=== PATIENT | female | born 1935 | race Caucasian/White ===

== ENCOUNTER → 2016-05-23 | Outpatient (CLI) | payer OTHER, MEDICARE | LOC: BMCIMAGING 11:14 | PROVIDERS: ATTEND Internal Medicine | DX: R09.89 Other specified symptoms and signs involving the circulatory and respiratory systems (principal) ==

== ENCOUNTER → 2016-09-10 | Outpatient (CLI) | payer OTHER, MEDICARE | LOC: CIMAGING 09:48 | PROVIDERS: ATTEND Internal Medicine | DX: R06.02 Shortness of breath (principal); R00.0 Tachycardia, unspecified | CPT/HCPCS: 71020-PO ==

== ENCOUNTER 2017-02-17 08:55 | Day surgery (SDC) | payer OTHER, MEDICARE ==
--- NOTE | 2017-02-17 10:08 | PDANEPAE ---
ANE History of Present Illness headaches ANE Past Medical History - Cardiovascular History Hx Hypertension: No Hx Arrhythmias: No Hx Chest Pain: No Hx Coronary Artery / Peripheral Vascular Disease: Yes Hx CHF / Valvular Disease: No Hx Palpitations: No Cardiovascular History Comment: angioplasty and stent placement 2006 - Pulmonary History Hx COPD: No Hx Asthma/Reactive Airway Disease: No Hx Recent Upper Respiratory Infection: No Hx Oxygen in Use at Home: Yes Hx Sleep Apnea: No - Neurologic History Hx Cerebrovascular Accident: No Hx Seizures: No Hx Dementia: Yes - Endocrine History Hx Diabetes: No Hypothyroid: Yes Hyperthyroid: No - GI History GERD: moderate Hx Gastrointestinal Disorders: Yes ANE Review of Systems Review of Systems: - Exercise capacity Exercise capacity: limited by disability ANE Patient History - Allergies Allergies/Adverse Reactions: acetaminophen [From Endocet] Allergy (Intermediate, Verified 10/03/09 08:38) aspirin [Aspirin] Allergy (Intermediate, Verified 10/03/09 08:39) oxycodone HCl [From Endocet] Allergy (Intermediate, Verified 10/03/09 08:38) Penicillins Allergy (Intermediate, Verified 10/03/09 08:39) clindamycin Allergy (Verified 02/17/17 10:05) codeine Allergy (Verified 02/17/17 10:10) hydrocodone Allergy (Verified 02/17/17 10:09) hyoscyamine Allergy (Verified 02/17/17 10:06) methenamine Allergy (Verified 02/17/17 10:10) tramadol Allergy (Verified 02/17/17 10:09) - Home Medications Home Medications: ACIDOPHILUS LACTOBACILLUS 10/03/09 [Last Taken 02/16/17] ARICEPT 10/03/09 [Last Taken 02/16/17] Aleve Arthritis 10/03/09 [Last Taken 02/16/17] Amitriptyline 25 mg 10/03/09 [Last Taken 10/03/09 07:00] Citacal 10/03/09 [Last Taken 10/03/09 07:00] ELMIRON 10/03/09 [Last Taken 10/03/09 08:00] Effexor 10/03/09 [Last Taken 02/16/17] Plavix 10/03/09 [Last Taken 02/16/17] Prosed-Ds 10/03/09 [Last Taken 10/03/09 07:00] Simvastatin 10/03/09 [Last Taken 02/16/17] Sulfamethoxazole-Tmp Ds Tablet 10/03/09 [Last Taken 10/03/09 07:00] Azo PRN PRN 02/17/17 [Last Taken 02/16/17] B12/Levomefolate Calcium/B-6 2,500 mcg DAILY 02/17/17 [Last Taken 02/16/17] Cosopt Eye Drops 02/17/17 [Last Taken 02/17/17] D3 + K2 Dots 1,000 Units Tab 02/17/17 [Last Taken 02/16/17] DIAZEPAM 2 mg 02/17/17 [Last Taken 02/16/17] Durezol 02/17/17 [Last Taken 02/17/17] Exemestane 25 mg 02/17/17 [Last Taken 02/16/17] Fish Oil 1,200 mg Fish Oil 02/17/17 [Last Taken 02/16/17] Gabapentin 100 mg 02/17/17 [Last Taken 02/16/17] Imodium 2 mg (*) 02/17/17 [Last Taken Unknown] LEVOTHYROXINE SODIUM 25 02/17/17 [Last Taken 02/16/17] Lomotil Tab (*) 02/17/17 [Last Taken Unknown] Lotemax0.5% Gel 02/17/17 [Last Taken 02/17/17] Lumigan 0.01% (*) 02/17/17 [Last Taken 02/16/17] Nitrofurantoin Macrocrystal 100 mg 02/17/17 [Last Taken 02/16/17] Ondansetron 4 mg 02/17/17 [Last Taken Unknown] Prednisone 20 mg 02/17/17 [Last Taken 02/16/17] ANE Physical Exam - Airway Neck exam: decreased ROM, short neck Mallampati Score: Class 3 Mouth exam: dentures - Pulmonary Pulmonary: no respiratory distress, no rales or rhonchi, clear to auscultation - Cardiovascular Cardiovascular: regular rate and rhythym, no murmur, rub, or gallop - ASA Status ASA Status: III ANE Anesthesia Plan Anesthesia Plan: general endotracheal anesthesia
[2017-02-17] MEDS ORDERED: BUPIVACAINE 0.5% 30 ML SDV ONE (10:14)
[2017-02-17 10:20] VITALS: PULSE 42
--- NOTE | 2017-02-17 10:24 | PDGENHP ---
History and Physical - Chief Complaint Headache - History of Present Illness Elevated ESR & CRP. Here for temporal artery biopsy to evaluate for temporal arteritis. C/O headache and confucianism pain. History Information - Allergies/Home Medication List Allergies/Adverse Reactions: acetaminophen [From Endocet] Allergy (Intermediate, Verified 10/03/09 08:38) aspirin [Aspirin] Allergy (Intermediate, Verified 10/03/09 08:39) oxycodone HCl [From Endocet] Allergy (Intermediate, Verified 10/03/09 08:38) Penicillins Allergy (Intermediate, Verified 10/03/09 08:39) clindamycin Allergy (Verified 02/17/17 10:05) codeine Allergy (Verified 02/17/17 10:10) hydrocodone Allergy (Verified 02/17/17 10:09) hyoscyamine Allergy (Verified 02/17/17 10:06) methenamine Allergy (Verified 02/17/17 10:10) tramadol Allergy (Verified 02/17/17 10:09) Home Medications: ACIDOPHILUS LACTOBACILLUS 10/03/09 [Last Taken 02/16/17] ARICEPT 10/03/09 [Last Taken 02/16/17] Aleve Arthritis 10/03/09 [Last Taken 02/16/17] Amitriptyline 25 mg 10/03/09 [Last Taken 10/03/09 07:00] Citacal 10/03/09 [Last Taken 10/03/09 07:00] ELMIRON 10/03/09 [Last Taken 10/03/09 08:00] Effexor 10/03/09 [Last Taken 02/16/17] Plavix 10/03/09 [Last Taken 02/16/17] Prosed-Ds 10/03/09 [Last Taken 10/03/09 07:00] Simvastatin 10/03/09 [Last Taken 02/16/17] Sulfamethoxazole-Tmp Ds Tablet 10/03/09 [Last Taken 10/03/09 07:00] Azo PRN PRN 02/17/17 [Last Taken 02/16/17] B12/Levomefolate Calcium/B-6 2,500 mcg DAILY 02/17/17 [Last Taken 02/16/17] Cosopt Eye Drops 02/17/17 [Last Taken 02/17/17] D3 + K2 Dots 1,000 Units Tab 02/17/17 [Last Taken 02/16/17] DIAZEPAM 2 mg 02/17/17 [Last Taken 02/16/17] Durezol 02/17/17 [Last Taken 02/17/17] Exemestane 25 mg 02/17/17 [Last Taken 02/16/17] Fish Oil 1,200 mg Fish Oil 02/17/17 [Last Taken 02/16/17] Gabapentin 100 mg 02/17/17 [Last Taken 02/16/17] Imodium 2 mg (*) 02/17/17 [Last Taken Unknown] LEVOTHYROXINE SODIUM 25 02/17/17 [Last Taken 02/16/17] Lomotil Tab (*) 02/17/17 [Last Taken Unknown] Lotemax0.5% Gel 02/17/17 [Last Taken 02/17/17] Lumigan 0.01% (*) 02/17/17 [Last Taken 02/16/17] Nitrofurantoin Macrocrystal 100 mg 02/17/17 [Last Taken 02/16/17] Ondansetron 4 mg 02/17/17 [Last Taken Unknown] Prednisone 20 mg 02/17/17 [Last Taken 02/16/17] I have personally reviewed and updated: family history, medical history, social history, surgical history Review of Systems Review of Systems: ROS: 2-9 pt reviewed & negative except for what was stated in HPI & below Constitutional: Reports: other (headache) EENMT: Reports: blurred vision Cardiac: Reports: no symptoms Respiratory: Reports: no symptoms Neurological: Reports: headache, other (Memory problems) Physical Exam Physical Exam: Temp Pulse Resp BP Pulse Ox 36.8 C 42 L 18 192/74 H 96 02/17/17 10:11 02/17/17 10:11 02/17/17 10:11 02/17/17 10:11 02/17/17 10:11 Constitutional: no apparent distress, appears nourished Eyes: No PERRL (R cataract) Ears, Nose, Mouth, Throat: moist mucous membranes, ears appear normal, other ( Skin warm and dry) Respiratory: no respiratory distress Skin: warm, normal color Neurologic: AAOx3 Assessment & Plan Assessment: Symptoms and findings concerning for temporal arteritis. Plan: To OR for RIGHT, possible LEFT temporal artery biopsy. The risks, benefits, and alternatives to the procedure was explained at length to the patient and her daughter. THey stated they understood and agreed with the plan.
[2017-02-17] MEDS ORDERED: BUPIVACAINE/EPI 0.5% 30 ML SDV ONE (10:25)
[2017-02-17] MEDS ORDERED: LR 1,000 ML IV ONE (10:29)
[2017-02-17] MEDS ORDERED: fentaNYL 100 MCG/2 ML INJ ONE ×2 (10:30→12:14)
[2017-02-17] MEDS ORDERED: PROPOFOL 200 MG/20 ML VIAL ONE (10:31)
[2017-02-17] MEDS ORDERED: LIDOCAINE 2% 5 ML SDV ONE (10:32)
[2017-02-17] MEDS ORDERED: DEXAMETHASONE 4 MG/ML VIAL ONE (10:34)
[2017-02-17] MEDS ORDERED: ROCURONIUM 50 MG/5 ML VIAL ONE (10:35)
[2017-02-17] MEDS ORDERED: PHENYLEPHRINE HCL 100 MCG/ML SYR ONE (10:40)
[2017-02-17] MEDS ORDERED: GLYCOPYRROLATE 0.2 MG/1 ML VIAL ONE ×2 (10:53)
[2017-02-17] MEDS ORDERED: LR 500 ML IV PRN (11:08)
[2017-02-17] MEDS ORDERED: ONDANSETRON 4 MG/2 ML VIAL IVP PRN (11:08)
[2017-02-17] MEDS ORDERED: NALOXONE HCL 0.4 MG/ML INJ IVP PRN (11:08)
[2017-02-17] MEDS ORDERED: SUGAMMADEX SODIUM 200 MG/2 ML VIAL IVP ONE (11:24)
[2017-02-17] MEDS ORDERED: BACITRACIN ZINC 14.2 GM OINTTUBE TP ONE (11:28)
[2017-02-17] MEDS ORDERED: KETOROLAC 30 MG/1 ML SDV ONE (11:36)
--- NOTE | 2017-02-17 11:59 | POSTOPPROG ---
Post Op Note Date of Operation: 02/17/17 Surgeon: Matias Platt Anesthesia: GET(General Endotracheal) Pre-op Diagnosis: Temporal arteritis Post-op Diagnosis: Temporal arteritis Indication: Temporal arteritis Procedure: R Temporal artery biosy Findings: R Temporal artery Inf/Abcess present in the surg proc area at time of surgery?: No Depth: Superfical (Skin SQ) EBL: Minimal Complications: none Specimen(s): R temporal artery
[2017-02-17] MEDS: fentaNYL 100 MCG/2 ML INJ IVP PRN ×2 (12:16→12:22)
[2017-02-17] MEDS ORDERED: ENALAPRILAT DIHYDRATE 1.25 MG/ML VIAL IVP PRN (12:48)
--- NOTE | 2017-02-17 12:48 | POSTANESTH ---
Post Anesthetic Evaluation Cardiovascular Status: Tx Hyper/Hypo-tension Respiratory Status: Normal, Stable Level of Consciousness/Mental Status: Can Participate in Eval Pain Control: Adequate, Prn Tx Ordered Nausea/Vomiting Control: Adequate, Prn Tx Ordered Complications Possibly Related to Anesthesia: None Noted
[2017-02-17] MEDS ORDERED: KETOROLAC 15 MG/1 ML SDV IVP ONE (12:54)
[2017-02-17] MEDS ORDERED: KETOROLAC 15 MG/1 ML SDV ONE (12:57)
[2017-02-17] MEDS ORDERED: ENALAPRILAT DIHYDRATE 1.25 MG/ML VIAL ONE (12:58)
[2017-02-17] MEDS ORDERED: ONDANSETRON 4 MG/2 ML VIAL ONE (13:25)
[2017-02-17 14:44] VITALS: O2SAT 100
[2017-02-17 15:39] VITALS: BP 171/63; RESP 23; TEMP 97.5
== END 2017-02-17 15:25 | disposition home or self-care (01) ==
LOC: FSGY 08:55
PROVIDERS: ATTEND Otolaryngology
PROC: 03BS3ZX Excision of Right Temporal Artery, Percutaneous Approach, Diagnostic (ICD-10-PCS; principal; 2017-02-17 10:15)
DX: R51 Headache (principal); I70.8 Atherosclerosis of other arteries; M54.2 Cervicalgia; G30.1 Alzheimer's disease with late onset; F02.80 Dementia in other diseases classified elsewhere, unspecified severity, without behavioral disturbance, psychotic disturbance, mood disturbance, and anxiety
CPT/HCPCS: J1100; J1885; J2370; J2405; J2704; J3010

== ENCOUNTER 2017-02-26 15:23 | Day surgery (SDC) | payer OTHER, MEDICARE ==
[2017-02-26] MEDS ORDERED: LR 1,000 ML IV ONE (16:24)
--- NOTE | 2017-02-26 16:50 | PDHPUP ---
History & Physical Update H&P update statement: This history and physical update is based on an assessment of the patient which was completed after admission or registration (within 24 hours), but prior to the surgery/procedure. H&P update: H&P reviewed & patient examined, no change in patient's condition since H&P completed
[2017-02-26] MEDS ORDERED: BUPIVACAINE 0.5% 30 ML SDV ONE (17:09)
--- NOTE | 2017-02-26 17:09 | PDANEPAE ---
ANE History of Present Illness 81 yo for temperal art bx ANE Past Medical History - Cardiovascular History Hx Hypertension: No Hx Arrhythmias: No Hx Chest Pain: No Hx Coronary Artery / Peripheral Vascular Disease: Yes Hx CHF / Valvular Disease: No Hx Palpitations: No Cardiovascular History Comment: angioplasty and stent placement 2006 - Pulmonary History Hx COPD: No Hx Asthma/Reactive Airway Disease: No Hx Recent Upper Respiratory Infection: No Hx Oxygen in Use at Home: Yes O2 in Use at Home (L/minute): 3 L AT NIGHT Hx Sleep Apnea: No - Neurologic History Hx Cerebrovascular Accident: No Hx Seizures: No Hx Dementia: Yes - Endocrine History Hx Diabetes: No - GI History Hx Gastrointestinal Disorders: Yes - Chronic Pain History Chronic Pain: Yes ANE Review of Systems Review of Systems: ANE Patient History - Allergies Allergies/Adverse Reactions: acetaminophen [From Endocet] Allergy (Intermediate, Verified 10/03/09 08:38) aspirin [Aspirin] Allergy (Intermediate, Verified 10/03/09 08:39) oxycodone HCl [From Endocet] Allergy (Intermediate, Verified 10/03/09 08:38) Penicillins Allergy (Intermediate, Verified 10/03/09 08:39) clindamycin Allergy (Verified 02/17/17 10:05) codeine Allergy (Verified 02/17/17 10:10) hydrocodone Allergy (Verified 02/17/17 10:09) hyoscyamine Allergy (Verified 02/17/17 10:06) methenamine Allergy (Verified 02/17/17 10:10) tramadol Allergy (Verified 02/17/17 10:09) - Home Medications Home Medications: ACIDOPHILUS LACTOBACILLUS 10/03/09 [Last Taken 02/16/17] ARICEPT 10/03/09 [Last Taken 1 Day Ago ~02/25/17] Aleve Arthritis 10/03/09 [Last Taken 1 Week Ago ~02/19/17] Effexor 10/03/09 [Last Taken 1 Day Ago ~02/25/17] Plavix 10/03/09 [Last Taken 02/25/17 22:00] Simvastatin 10/03/09 [Last Taken 1 Day Ago ~02/25/17] Azo PRN PRN 02/17/17 [Last Taken 02/16/17] B12/Levomefolate Calcium/B-6 2,500 mcg DAILY 02/17/17 [Last Taken 1 Day Ago ~03/02] Cosopt Eye Drops 02/17/17 [Last Taken 02/26/17] D3 + K2 Dots 1,000 Units Tab 02/17/17 [Last Taken 1 Day Ago ~02/25/17] DIAZEPAM 2 mg 02/17/17 [Last Taken 1 Day Ago ~02/25/17] Durezol 02/17/17 [Last Taken 1 Day Ago ~02/25/17] Exemestane 25 mg 02/17/17 [Last Taken 1 Day Ago ~02/25/17] Fish Oil 1,200 mg Fish Oil 02/17/17 [Last Taken 1 Day Ago ~02/25/17] Gabapentin 100 mg 02/17/17 [Last Taken 02/16/17] Imodium 2 mg (*) 02/17/17 [Last Taken Unknown] LEVOTHYROXINE SODIUM 25 02/17/17 [Last Taken 1 Day Ago ~02/25/17] Lomotil Tab (*) 02/17/17 [Last Taken 02/26/17] Lotemax0.5% Gel 02/17/17 [Last Taken 02/17/17] Lumigan 0.01% (*) 02/17/17 [Last Taken 02/26/17 07:00] Nitrofurantoin Macrocrystal 100 mg 02/17/17 [Last Taken 02/16/17] Prednisone 20 mg 02/17/17 [Last Taken 02/26/17] - NPO status NPO Status: no food or drink >8 hours NPO Since - Liquids (Date): 02/26/17 NPO Since - Liquids (Time): 01:00 NPO Since - Solids (Date): 02/26/17 NPO Since - Solids (Time): 01:00 - Anes Hx Anes Hx: post operative nausea - Smoking Hx Smoking Status: Never smoked ANE Labs/Vital Signs - Vital Signs Blood Pressure: 197/84 Heart Rate: 68 Respiratory Rate: 18 O2 Sat (%): 97 Height: 4 ft 10 in Weight: 63.503 kg ANE Physical Exam - Airway Neck exam: FROM Mallampati Score: Class 1 Mouth exam: dentures - Pulmonary Pulmonary: no respiratory distress - Cardiovascular Cardiovascular: regular rate and rhythym - ASA Status ASA Status: III ANE Anesthesia Plan Anesthesia Plan: general endotracheal anesthesia
[2017-02-26] MEDS ORDERED: PROPOFOL/EMULSION 500 MG/50 ML BOTTLE IV ONE (17:18)
[2017-02-26] MEDS ORDERED: fentaNYL 100 MCG/2 ML INJ ONE (17:18)
[2017-02-26] MEDS ORDERED: BUPIVACAINE/EPI 0.5% 30 ML SDV ONE (17:49)
[2017-02-26] MEDS ORDERED: DESFLURANE 240 ML BOTTLE IH ONE (18:00)
[2017-02-26] MEDS ORDERED: NALOXONE HCL 0.4 MG/ML INJ IVP PRN (18:03)
[2017-02-26] MEDS ORDERED: ONDANSETRON 4 MG/2 ML VIAL IVP PRN (18:03)
[2017-02-26] MEDS ORDERED: fentaNYL 100 MCG/2 ML INJ IVP PRN (18:03)
--- NOTE | 2017-02-26 18:28 | POSTOPPROG ---
Post Op Note Date of Operation: 02/26/17 Surgeon: Matias Platt Anesthesia: GET(General Endotracheal) Pre-op Diagnosis: Temporal arteritis Post-op Diagnosis: Temporal arteritis Indication: Temporal arteritis Procedure: LEFT Temporal artery biopsy Findings: Normal appearing temporal artery Inf/Abcess present in the surg proc area at time of surgery?: No Depth: Deep Incisional (Fascial) EBL: Minimal Complications: none Specimen(s): LEFT temporal artery
[2017-02-26 19:19] VITALS: BP 171/92; PULSE 65; RESP 18; TEMP 97.7
[2017-02-26 19:43] VITALS: O2SAT 94
--- NOTE | 2017-02-26 20:01 | POSTANESTH ---
Post Anesthetic Evaluation Cardiovascular Status: Normal, Stable Respiratory Status: Normal, Stable Level of Consciousness/Mental Status: Can Participate in Eval Pain Control: Adequate, Prn Tx Ordered Nausea/Vomiting Control: Adequate, Prn Tx Ordered
== END 2017-02-26 19:44 | disposition home or self-care (01) ==
LOC: F3E 15:23 → UNDOADMIN 15:23 → FSGY 15:23 → EDSTATUS 17:00 → FSGY 19:44
PROVIDERS: ATTEND Otolaryngology
PROC: 03BT0ZX Excision of Left Temporal Artery, Open Approach, Diagnostic (ICD-10-PCS; principal; 2017-02-26 17:00)
DX: M31.6 Other giant cell arteritis (principal); R51 Headache; Z95.5 Presence of coronary angioplasty implant and graft
CPT/HCPCS: J2704; J3010

== ENCOUNTER 2018-08-15 13:06 | Inpatient (IN) | payer OTHER, MEDICARE ==
--- NOTE | 2018-08-15 13:53 | EDPHY ---
H & P Time Seen by Provider: 08/15/18 13:32 HPI/ROS: CHIEF COMPLAINT: Shortness of breath, chest pressure HISTORY OF PRESENT ILLNESS: The patient is an 83-year-old female with a history of coronary artery disease and stents placed previously who presents emergency department with shortness of breath and chest heaviness. Patient states her shortness of breath started 2 weeks ago. She called her doctor yesterday because she requested oxygen at home. Her symptoms have continued to worsen so she was seen in urgent care and subsequently sent to the emergency department. The patient has not had a cough recently. She has not been ill. Patient describes chest heaviness starting today. This is mild. She has had no nausea vomiting. REVIEW OF SYSTEMS: 10 systems were reveiwed and are negative with the exception of the elements mentioned in the history of present illness. Past Medical/Surgical History: Includes glaucoma, arthritis, coronary artery disease, depression, back pain Past surgical history: Includes corneal surgery, neurostimulator, cardiac stents Social history: Patient does not smoke. Smoking Status: Never smoked Physical Exam: Vitals noted. Hypertensive GENERAL: Well-appearing, in no acute distress, alert. HEENT: Right I would not functional, normal pharynx, no signs of dehydration. NECK: Normal, supple. RESPIRATORY: Clear to auscultation bilaterally, no rales, rhonchi or wheezing. CVS: Regular rate and rhythm, no rubs, murmurs, or gallops. ABDOMEN: Soft, nontender, nondistended, no organomegaly. BACK: Normal to inspection, no CVA tenderness. SKIN: Normal color, no rash, warm, dry. No pallor. EXTREMITIES: No pedal edema, no calf tenderness, no Homans sign or cords, no joint swelling. NEURO/PSYCH: Alert and oriented, normal mood and affect, normal motor sensory exam. No obvious cranial nerve deficit. Constitutional: Initial Vital Signs Temperature (C) 36.6 C 08/15/18 13:13 Heart Rate 51 L 08/15/18 13:13 Respiratory Rate 16 08/15/18 13:13 Blood Pressure 170/61 H 08/15/18 13:13 O2 Sat (%) 93 08/15/18 13:13 O2 Delivery Mode Room Air Allergies/Adverse Reactions: acetaminophen [From Endocet] Allergy (Intermediate, Verified 08/15/18 13:17) aspirin [Aspirin] Allergy (Intermediate, Verified 08/15/18 13:17) oxycodone HCl [From Endocet] Allergy (Intermediate, Verified 08/15/18 13:17) Penicillins Allergy (Intermediate, Verified 08/15/18 13:17) clindamycin Allergy (Verified 08/15/18 13:17) codeine Allergy (Verified 08/15/18 13:17) hydrocodone Allergy (Verified 08/15/18 13:17) hyoscyamine Allergy (Verified 08/15/18 13:17) methenamine Allergy (Verified 08/15/18 13:17) tramadol Allergy (Verified 08/15/18 13:17) Home Medications: Medication Instructions Recorded ACIDOPHILUS LACTOBACILLUS 10/03/09 ARICEPT 10/03/09 Aleve Arthritis 10/03/09 Effexor 10/03/09 Plavix 10/03/09 Simvastatin 10/03/09 Azo PRN PRN 02/17/17 B12/Levomefolate Calcium/B-6 2,500 mcg DAILY 02/17/17 Cosopt Eye Drops 02/17/17 D3 + K2 Dots 1,000 Units Tab 02/17/17 DIAZEPAM 2 mg 02/17/17 Durezol 02/17/17 Exemestane 25 mg 02/17/17 Fish Oil 1,200 mg Fish Oil 02/17/17 Gabapentin 100 mg 02/17/17 Imodium 2 mg (*) 02/17/17 LEVOTHYROXINE SODIUM 25 02/17/17 Lomotil Tab (*) 02/17/17 Lotemax0.5% Gel 02/17/17 Lumigan 0.01% (*) 02/17/17 Nitrofurantoin Macrocrystal 100 mg 02/17/17 Prednisone 20 mg 02/17/17 Medical Decision Making ED Course/Re-evaluation: In the emergency department discussed possible etiologies with the patient and family. I answered all her questions. IV was placed. Laboratory studies were obtained. EKG and chest x-ray were ordered. Patient is allergic to aspirin. EKG: Sinus bradycardia 47. Left bundle branch block Troponin is negative. CBC is notable for low hematocrit. Chemistry panel is unremarkable. BNP is 4600. Ddimer is elevated. Due to the elevated D-dimer is CT angiogram was ordered. I discussed this plan with the patient. I discussed the case with Dr. Clinton. He will admit the patient. Differential Diagnosis: My differential includes but is not limited to ACS, acute LA, pneumonia, bronchitis, dissection, aneurysm, pulmonary embolus, anemia, electrolyte abnormality, sugar abnormality - Data Points Laboratory Results: Laboratory Results 08/15/18 13:39 08/15/18 13:39 08/15/18 08/15/18 08/15/18 13:45 13:39 13:39 WBC RBC Hgb Hct MCV MCH MCHC RDW Plt Count MPV Neut % (Auto) Lymph % (Auto) Creek % (Auto) Eos % (Auto) Baso % (Auto) Nucleat RBC Rel Count Absolute Neuts (auto) Absolute Lymphs (auto) Absolute Monos (auto) Absolute Eos (auto) Absolute Basos (auto) Absolute Nucleated RBC Immature Gran % Immature Gran # PT 14.0 SEC SEC (12.0-15.0) INR 1.12 (0.83-1.16) APTT 35.1 SEC SEC (23.0-38.0) D-Dimer 1.41 ug/mLFEU H ug/mLFEU (0.00-0.50) Sodium 140 mEq/L mEq/L (135-145) Potassium 4.7 mEq/L mEq/L (3.5-5.2) Chloride 107 mEq/L mEq/L (97-110) Carbon Dioxide 23 mEq/l mEq/l (22-31) Anion Gap 10 mEq/L mEq/L (6-14) BUN 26 mg/dL H mg/dL (7-23) Creatinine 0.9 mg/dL mg/dL (0.6-1.0) Estimated GFR 60 Glucose 80 mg/dL mg/dL (70-100) Calcium 9.3 mg/dL mg/dL (8.5-10.4) POC Troponin I 0.02 ng/mL ng/mL (0.00-0.08) NT-Pro-B Natriuret Pep 4690 pg/mL H pg/mL (0-450) 08/15/18 13:39 WBC 9.34 10^3/uL 10^3/uL (3.80-9.50) RBC 4.33 10^6/uL 10^6/uL (4.18-5.33) Hgb 11.0 g/dL L g/dL (12.6-16.3) Hct 37.8 % L % (38.0-47.0) MCV 87.3 fL fL (81.5-99.8) MCH 25.4 pg L pg (27.9-34.1) MCHC 29.1 g/dL L g/dL (32.4-36.7) RDW 14.3 % % (11.5-15.2) Plt Count 233 10^3/uL 10^3/uL (150-400) MPV 11.0 fL fL (8.7-11.7) Neut % (Auto) 59.8 % % (39.3-74.2) Lymph % (Auto) 26.6 % % (15.0-45.0) Creek % (Auto) 9.6 % % (4.5-13.0) Eos % (Auto) 3.2 % % (0.6-7.6) Baso % (Auto) 0.6 % % (0.3-1.7) Nucleat RBC Rel Count 0.0 % % (0.0-0.2) Absolute Neuts (auto) 5.58 10^3/uL 10^3/uL (1.70-6.50) Absolute Lymphs (auto) 2.48 10^3/uL 10^3/uL (1.00-3.00) Absolute Monos (auto) 0.90 10^3/uL H 10^3/uL (0.30-0.80) Absolute Eos (auto) 0.30 10^3/uL 10^3/uL (0.03-0.40) Absolute Basos (auto) 0.06 10^3/uL 10^3/uL (0.02-0.10) Absolute Nucleated RBC 0.00 10^3/uL 10^3/uL (0-0.01) Immature Gran % 0.2 % % (0.0-1.1) Immature Gran # 0.02 10^3/uL 10^3/uL (0.00-0.10) PT INR APTT D-Dimer Sodium Potassium Chloride Carbon Dioxide Anion Gap BUN Creatinine Estimated GFR Glucose Calcium POC Troponin I NT-Pro-B Natriuret Pep Point of Care Test Results: Chemistry 08/15/18 13:45 POC Troponin I 0.02 ng/mL ng/mL (0.00-0.08) Departure - Departure Disposition: [facility] Inpatient Acute Clinical Impression: Shortness of breath Chest pain Qualifiers: Chest pain type: unspecified Qualified Code(s): R07.9 - Chest pain, unspecified Condition: Fair
[2018-08-15 14:25] LABS: PLATELET COUNT 233 10^3/uL (150-400)
[2018-08-15 14:28] LABS: INR 1.12 (0.83-1.16)
[2018-08-15] MEDS ORDERED: IOPAMIDOL (ISOVUE 370) 100 ML BTL IV ONE (14:41)
--- NOTE | 2018-08-15 15:06 | CPEKG ---
Test Reason : OPEN Blood Pressure : / mmHG Vent. Rate : 047 BPM Atrial Rate : 047 BPM P-R Int : 175 ms QRS Dur : 136 ms QT Int : 550 ms P-R-T Axes : 045 -39 093 degrees QTc Int : 487 ms Sinus bradycardia Left bundle branch block Confirmed by Morelia Lainez ([id number]) on 08/15/2018 3:06:12 PM Referred By: Morelia Lainez Confirmed By:Morelia Lainez
[2018-08-15] MEDS ORDERED: ONDANSETRON 4 MG/2 ML VIAL IVP PRN (16:56)
[2018-08-15] MEDS ORDERED: oxyCODONE IR 5 MG TAB PO PRN (16:56)
[2018-08-15] MEDS ORDERED: LOPERAMIDE HCL 2 MG CAP PO PRN (16:58)
[2018-08-15] MEDS ORDERED: DIPHENOXYLATE/ATROPINE LOMOTIL 1 TAB PO PRN (16:58)
[2018-08-15] MEDS ORDERED: FUROSEMIDE 20 MG/2 ML VIAL IVP ONE (17:24)
--- NOTE | 2018-08-15 17:32 | PDGENHP ---
History and Physical - Chief Complaint shortness of breath - History of Present Illness 83yo F with history of CAD s/p PCI in 2006, mild pulmonary fibrosis, mild dementia who presents with 2 weeks of shortness of breath. This is associated with a feeling of chest heaviness, especially when she lies flat. She denies any exertional chest pain. Hasn't noticed any leg swelling. No recent fevers, chills, or cough. She is not on a diuretic. She had a coronary stent placed in [address] Adkins and was seen by Dr Navarro at the [facility]. She had a chemical stress test approximately 1 year ago that was reportedly normal per the patient's daughters. They do not know when her last angiogram was performed. In the ED, ECG showed sinus bradycardia with a LBBB (no old for comparison. Initial troponin negative. CXR reveals mild cardiomegaly and features consistent with pulmonary vascular congestion. A CTA of her chest was also done and negative for PE but consistent with congestive heart failure. She is being admitted for further evaluation and care. Case discussed with ED physician Morelia Lainez. I did review a TTE from 2017 which showed a low normal LVEF of 50-55% (down from 65% in 2013), mildly reduced RV function, trace MR, diastolic dysfunction, mild pulmonary hypertension. Lastly, she is having some burning with urination and urinary frequency, consistent with prior UTIs. History Information - Allergies/Home Medication List Allergies/Adverse Reactions: acetaminophen [From Endocet] Allergy (Intermediate, Verified 08/15/18 15:55) aspirin [Aspirin] Allergy (Intermediate, Verified 08/15/18 15:55) oxycodone HCl [From Endocet] Allergy (Intermediate, Verified 08/15/18 15:55) Penicillins Allergy (Intermediate, Verified 08/15/18 15:55) citalopram Allergy (Mild, Unverified 08/15/18 15:55) clindamycin Allergy (Verified 08/15/18 15:55) codeine Allergy (Verified 08/15/18 15:55) hydrocodone Allergy (Verified 08/15/18 15:55) hyoscyamine Allergy (Verified 08/15/18 15:55) methenamine Allergy (Verified 08/15/18 15:55) sodium phosphate Allergy (Unverified 08/15/18 15:56) tramadol Allergy (Verified 08/15/18 15:55) Home Medications: Clopidogrel Bisulfate [Plavix (*)] 75 mg PO DAILY 08/15/18 [Last Taken 08/15/18] Diphenoxylate HCl/Atrop Sulf [Lomotil Tab (*)] 1 tab PO DAILY PRN 08/15/18 [ Last Taken Unknown] Donepezil HCl [Aricept] 10 mg PO DAILY 08/15/18 [Last Taken 08/15/18] FLUoxetine [Prozac 20 MG (*)] 20 mg PO HS 08/15/18 [Last Taken 08/14/18] Gabapentin [Neurontin 100 MG (*)] 200 mg PO HS 08/15/18 [Last Taken 08/14/18] Latanoprost 0.005% [Xalatan 0.005% (*)] 1 drops LEFTEYE HS 08/15/18 [Last Taken 08/14/18] Levothyroxine [Synthroid 25 mcg (*)] 25 mcg PO DAILY06 08/15/18 [Last Taken 04/04] Loperamide HCl [Imodium 2 mg (*)] 2 - 4 mg PO PRN PRN MDD 16 mg 08/15/18 [Last Taken Unknown] Loteprednol 0.5% [Lotemax0.5% Gel] 1 drops RTEYE DAILY 08/15/18 [Last Taken 04/04] Omeprazole 40 mg PO DAILY PRN 08/15/18 [Last Taken 08/14/18] Ondansetron HCl 4 mg PO BID PRN 08/15/18 [Last Taken Unknown] Simvastatin 20 mg PO DAILY 08/15/18 [Last Taken 08/15/18] Timolol [Betimol] 1 drop EACHEYE DAILY 08/15/18 [Last Taken 08/15/18] prednisoLONE ACET 1% [Pred Forte 1% (*)] 1 drop RTEYE DAILY 08/15/18 [Last Taken 08/15/18] I have personally reviewed and updated: family history, medical history, social history, surgical history - Past Medical History Additional medical history: CAD s/p PCI in 2006, mild pulmonary fibrosis (not on supplemental oxygen), mild dementia, HLD, hypothyroidism, frequent UTIs, GERD , glaucoma - Surgical History Reports: no pertinent surgical hx - Family History Positive for: non-pertinent - Social History Smoking Status: Never smoked Alcohol Use: None Drug Use: None Additional social history: Lives with daughter. Additional daughter lives in [place]. Review of Systems Review of Systems: ROS: 10pt was reviewed & negative except for what was stated in HPI & below Physical Exam Physical Exam: Temp Pulse Resp BP Pulse Ox 36.4 C 50 L 18 166/59 H 91 L 08/15/18 16:51 08/15/18 16:51 08/15/18 16:51 08/15/18 16:51 08/15/18 16:51 Constitutional: no apparent distress, other (elderly) Eyes: PERRL, anicteric sclera, EOMI Ears, Nose, Mouth, Throat: moist mucous membranes, hearing normal, ears appear normal, no oral mucosal ulcers Cardiovascular: no murmur, rub, or gallop, JVD, bradycardia, No edema Respiratory: no respiratory distress, reduced air movement (bases), inspiratory crackles Gastrointestinal: normoactive bowel sounds, soft, non-tender abdomen, no palpable masses Genitourinary: no bladder fullness, no bladder tenderness Skin: warm, normal color, no rashes or abrasions, no fluctuance, no induration, No mottled Musculoskeletal: full muscle strength, no muscle tenderness, normal joint ROM, no joint effusions Neurologic: AAOx3 Psychiatric: interacting appropriately Lab Data & Imaging Review 08/15/18 13:39 08/15/18 13:39 WBC 9.34 10^3/uL (3.80-9.50) 08/15/18 13:39 RBC 4.33 10^6/uL (4.18-5.33) 08/15/18 13:39 Hgb 11.0 g/dL (12.6-16.3) L 08/15/18 13:39 Hct 37.8 % (38.0-47.0) L 08/15/18 13:39 MCV 87.3 fL (81.5-99.8) 08/15/18 13:39 MCH 25.4 pg (27.9-34.1) L 08/15/18 13:39 MCHC 29.1 g/dL (32.4-36.7) L 08/15/18 13:39 RDW 14.3 % (11.5-15.2) 08/15/18 13:39 Plt Count 233 10^3/uL (150-400) 08/15/18 13:39 MPV 11.0 fL (8.7-11.7) 08/15/18 13:39 Neut % (Auto) 59.8 % (39.3-74.2) 08/15/18 13:39 Lymph % (Auto) 26.6 % (15.0-45.0) 08/15/18 13:39 [place] % (Auto) 9.6 % (4.5-13.0) 08/15/18 13:39 Eos % (Auto) 3.2 % (0.6-7.6) 08/15/18 13:39 Baso % (Auto) 0.6 % (0.3-1.7) 08/15/18 13:39 Nucleat RBC Rel Count 0.0 % (0.0-0.2) 08/15/18 13:39 Absolute Neuts (auto) 5.58 10^3/uL (1.70-6.50) 08/15/18 13:39 Absolute Lymphs (auto) 2.48 10^3/uL (1.00-3.00) 08/15/18 13:39 Absolute Monos (auto) 0.90 10^3/uL (0.30-0.80) H 08/15/18 13:39 Absolute Eos (auto) 0.30 10^3/uL (0.03-0.40) 08/15/18 13:39 Absolute Basos (auto) 0.06 10^3/uL (0.02-0.10) 08/15/18 13:39 Absolute Nucleated RBC 0.00 10^3/uL (0-0.01) 08/15/18 13:39 Immature Gran % 0.2 % (0.0-1.1) 08/15/18 13:39 Immature Gran # 0.02 10^3/uL (0.00-0.10) 08/15/18 13:39 PT 14.0 SEC (12.0-15.0) 08/15/18 13:39 INR 1.12 (0.83-1.16) 08/15/18 13:39 APTT 35.1 SEC (23.0-38.0) 08/15/18 13:39 D-Dimer 1.41 ug/mLFEU (0.00-0.50) H 08/15/18 13:39 Sodium 140 mEq/L (135-145) 08/15/18 13:39 Potassium 4.7 mEq/L (3.5-5.2) 08/15/18 13:39 Chloride 107 mEq/L (97-110) 08/15/18 13:39 Carbon Dioxide 23 mEq/l (22-31) 08/15/18 13:39 Anion Gap 10 mEq/L (6-14) 08/15/18 13:39 BUN 26 mg/dL (7-23) H 08/15/18 13:39 Creatinine 0.9 mg/dL (0.6-1.0) 08/15/18 13:39 Estimated GFR 60 08/15/18 13:39 Glucose 80 mg/dL (70-100) 08/15/18 13:39 Calcium 9.3 mg/dL (8.5-10.4) 08/15/18 13:39 POC Troponin I 0.02 ng/mL (0.00-0.08) 08/15/18 13:45 NT-Pro-B Natriuret Pep 4690 pg/mL (0-450) H 08/15/18 13:39 Interpretation: CXR: per HPI EKG additional interpertation: ECG: per HPI, no e/o acute ischemia Assessment & Plan Assessment: 83yo F with history of CAD s/p PCI in 2005, previously low-normal LVEF, mild pulmonary fibrosis, mild dementia who presents with 2 weeks of shortness of breath. Plan: 1. Dyspnea: Clinical picture most consistent with decompensated congestive heart failure. No e/o PE. She is not hypoxemic. - TTE - Lasix 20mg IV BID (she is diuretic naive). Will place st as she is high fall risk and to obtain accurate I/Os. - Monitor renal fxn, electrolytes 2. Chest heaviness: This is strictly associated with her breathing issues and not exertional. I have less of a concern that this is an anginal equivalent. Initial trop negative. Reportedly had chemical stress test approximately 1 year ago without reversible ischemia per patient's daughters. - Trend trops - Obtaining records re: stress test. May need repeat stress testing pending these results. 3. LBBB: No old ecg for comparison. - Requesting records from [facility] 4. Sinus bradycardia: No AV block or pauses noted. Not on AV alexis blockers. Patient reports this is chronic issue. - Telemetry 5. CAD s/p PCI in 2005: Will continue her plavix (she has reported allergy to aspirin) and statin. 6. Dysuria: C/w previous UTI symptoms. Will treat as such. Does not have true allergy against PCN. - Checking UA/culture. Start keflex 500mg BID 7. Anemia: Normocytic. Somewhat chronic. Outpatient evaluation/monitoring. 8. Mild interstitial lung disease: Saw Lc Wooten in 2017. PFTs c/w restrictive pattern. She may need nocturnal O2. 9. GERD: Continue PPI 10. Dementia: Resume home aricept. VTE ppx: LMWH Code: DNR/DNI per discussion with patient and daughters. She understands the implications of this and has MOST form filled out with her PCP stating the same. Dispo: Admit under observation
--- NOTE | 2018-08-15 18:32 | ASMTLACE ---
DAVIS Acuity / Level of Answers: No Care: Did the patient have an inpatient admission? Comorbidities - select Answers: Chronic pulmonary disease all that apply Coronary Artery Disease Dementia Opioid dependence / Chronic pain Other Notes: Mild dementia, glaucoma, cor claudia l surgery, neurostiumlato r, stents, arthritis # of Emergency department Answers: 1-2 visits in the last 6 months Social determinants Answers: Mental health diagnosis (anxiety, depression, pers onality disorders, etc.) Score: 16 Date Signed: 08/15/2018 06:31 PM Electronically Signed By:Joyce Greer RN
[2018-08-15] MEDS ORDERED: FLUoxetine 20 MG CAP PO SCH (21:00)
[2018-08-15] MEDS ORDERED: GABAPENTIN 100 MG CAP PO SCH (21:00)
[2018-08-15] MEDS ORDERED: LATANOPROST 0.005% 2.5 ML OPHT DROPS LEFTEYE SCH (21:00)
[2018-08-15] MEDS: ONDANSETRON DISINTEGRATING 4 MG TAB PO PRN (21:14)
[2018-08-15] MEDS: CEPHALEXIN 500 MG CAP PO SCH (21:14)
[2018-08-15] MEDS ORDERED: MELATONIN 3 MG TAB PO PRN (22:23)
[2018-08-16 05:29] LABS: PLATELET COUNT 199 10^3/uL (150-400)
[2018-08-16] MEDS ORDERED: LEVOTHYROXINE 25 MCG TAB PO SCH (06:00)
[2018-08-16] MEDS ORDERED: CLOPIDOGREL BISULFATE 75 MG TAB PO SCH (09:00)
[2018-08-16] MEDS ORDERED: PANTOPRAZOLE SODIUM 40 MG TAB PO PRN (09:00)
[2018-08-16] MEDS ORDERED: TIMOLOL 0.5% 15 ML OPHT.BTL EACHEYE SCH (09:00)
[2018-08-16] MEDS ORDERED: prednisoLONE ACET 1% 5 ML OPHT.BTL RTEYE SCH (09:00)
[2018-08-16] MEDS ORDERED: ATORVASTATIN CALCIUM 10 MG TAB PO SCH (09:00)
[2018-08-16] MEDS ORDERED: LOTEPREDNOL 0.5% OPHT GEL 5GM RTEYE SCH ×2 (09:00→21:00)
[2018-08-16] MEDS ORDERED: DONEPEZIL HCL 5 MG TAB PO SCH (09:00)
[2018-08-16] MEDS ORDERED: ENOXAPARIN 40 MG/0.4 ML SYR SC SCH (09:00)
[2018-08-16] MEDS: ONDANSETRON DISINTEGRATING 4 MG TAB PO PRN (09:08)
[2018-08-16] MEDS: CEPHALEXIN 500 MG CAP PO SCH (09:14)
[2018-08-16] MEDS ORDERED: DORZOLAMIDE/TIMOLOL 10 ML OPHT.BTL LEFTEYE SCH (10:00)
[2018-08-16] MEDS ORDERED: DORZOLAMIDE/TIMOLOL 10 ML OPHT.BTL EACHEYE SCH (10:00)
--- NOTE | 2018-08-16 12:03 | PDMN ---
Medical Necessity Medical necessity: [facility] M190 Heart Failure, A-2 days: 83 yo w/ SOB and chest heaviness. Eval reveals s/sx most likely associated w/ CHF. Pt nikky in 50s on admit. Initially OBS for workup/tx but change to IP status - pt HR dropped to 40s and is persistent, pt + for UTI, Cx pending, IV diuresis started, urinary cath placed for strict I/O/pt high fall risk. PO antibx started. PT/ OT. Cont tele. Anticiapte>2Mn for ongoing monitoring and tx of the above. Change to IP status 08/15/18@2349 per MD order. Hx CAD s/p PCI in 2005, mild pulmonary fibrosis (not on supplemental oxygen), mild dementia, HLD, hypothyroidism, frequent UTIs, GERD, glaucoma
[2018-08-16 12:07] VITALS: BP 131/37
--- NOTE | 2018-08-16 12:27 | ECHO ---
[email or web address] [address] [address] Main: [phone] Echocardiography Examination Transthoracic Name: ABBY COTTON MR#: [id number] Study Date: 08/16/2018 Study Time: 09:49 AM Date of : 1935 Age: 83 year(s) Height: 147.3 cm (58 in.) Weight: 56.25 kg (124 lb.) BSA: 1.49 m2 Gender: Female Examination: Echo Contrast: Image Quality: Rhythm: Heart Rate: 44 bpm BP: 133 mmHg/32 mmHg Indication: Cardiac: dyspnea Procedure Staff Referring Physician: Yard Associate: Primitivo Bailey RDCS Reading Physician: Sin Harris MD Requesting Provider: Ordering Physician: Anthony Clinton Indication: Cardiac: dyspnea Measurements Chambers AV/MV Label Value Normal Value Label Value Normal Value LVOT Vmax 0.81 m/s (0.7m/s - 1.1m/s) AV PGmax 11 mmHg LVOTd 1.9 cm (1.8cm - 2cm) AV PGmean 5 mmHg LVOT VTI 21.7 cm (18cm - 22cm) AV Vmax 1.67 m/s LVDd, 2D 4.2 cm (3.9cm - 5.3cm) RENE (Vmax) 1.4 cm2 LVDs, 2D 2.5 cm (2.1cm - 4cm) RENE (VTI) 1.4 cm2 IVSd, 2D 0.8 cm (0.6cm - 1.1cm) MV E Vmax 1.61 m/s LVPWd, 2D 0.9 cm MV A Vmax 1.18 m/s LVEF, 2D 71 % (54% - 74%) MV E/A 1.36 LVOT PGmean 1 mmHg MV E/E' lateral 28.7 LVOT Vmean 0.53 m/s MV E/E' septal 41.3 (0.45 - 1.25) RVDd, 2D 1.9 cm (1.9cm - 3.8cm) MV DT 373 ms LADs, 2D 3.4 cm (2.7cm - 3.8cm) MV E' septal 0.04 m/s RA Area 11.6 cm2 MV VTI 84.1 cm Additional Vessels MVA D (continuity eq.) 0.7 cm2 Label Value Normal Value MV PGmax 14 mmHg AoRoot, MM 2.9 cm (2.2cm - 3.7cm) MV PGmean 4 mmHg MV PHT 0.08 s MVA PHT 2.7 cm2 MR Vena Contracta 0.4 cm Patient: ABBY COTTON Study Date: 08/16/2018 Page 1 of 3 09:49 AM MR Vmax 4.43 m/s MR VTI 103 cm MV E' lateral 0.06 m/s MV E/E' mean 32.2 MV PHT 81 ms MV E' mean 0.05 m/s TV/PV Label Value Normal Value RA Pressure 5 mmHg RVSP 33 mmHg TR Pmax 28 mmHg TR Vmax 2.65 m/s MS End kennedy Terry 0.91 cm/s PV PGmax 5 mmHg PV Vmax, Caliper 1.07 m/s (0.6m/s - 0.9m/s) Conclusions Left Ventricle: LVEF 71% evaluated by EF (biplane Wiley's). Mitral Valve: Mild mitral regurgitation. Mild mitral valve stenosis. Findings Left Ventricle: Left ventricle is normal in size. Normal global systolic left ventricular function. LVEF 71% evaluated by EF (biplane Wiley's). The LV wall thickness is at the upper limits of normal. There are no regional wall motion abnormalities. Diastolic Dysfunction is indeterminate. No LV hypertrophy. Right Ventricle: Normal size right ventricle. Right ventricular systolic function is normal. Left Atrium: The left atrium is mildly dilated. Right Atrium: The right atrium is mildly dilated. Mitral Valve: Mild mitral regurgitation. Mild mitral valve stenosis. There is mild mitral calcification. There is mitral thickening. No echocardiographic evidence for mitral valve prolapse. Mitral Valve Measurements MV PGmean is 4 mmHg. MVA PHT is 2.7 cm2. Aortic Valve: No significant aortic valve regurgitation. There is no aortic stenosis. Aortic leaflets exhibit mild calcification. Tricuspid Valve: Tricuspid valve leaflets are normal in appearance and function. Mild tricuspid regurgitation. Right Ventricular systolic pressure is measured at 33 mmHg. Pulmonary artery pressure normal. Pulmonic Valve: Pulmonic leaflets are structurally normal. Mild pulmonic valve regurgitation is present. Aorta: The aorta is normal. The aortic root size in M-mode measures 2.9 cm. Aorta Measurements Patient: ABBY COTTON Study Date: 08/16/2018 Page 2 of 3 09:49 AM AoRoot, MM is 2.9 cm. Pericardium: No pericardial effusion. Exam Details Procedure Ordered: Echo (No Signature Object) Patient: ABBY COTTON Study Date: 08/16/2018 Page 3 of 3 09:49 AM [id number]
[2018-08-16] MEDS ORDERED: FUROSEMIDE 20 MG TAB PO SCH (12:30)
--- NOTE | 2018-08-16 14:21 | PDDCSUM ---
Discharge Summary Discharge Summary: 83yo F with history of CAD s/p PCI in 2005, previously low-normal LVEF, mild pulmonary fibrosis, mild dementia who presents with 2 weeks of shortness of breath. She is found to have diastolic CHF and has responded well to Lasix. She had an Echocardiogram and this was c/w a preserved LVEF and no wall motion abnormalities. She has a LBBB which appears chronic. However, there are no prior EKG for comparison. I discussed the case with cardiology who also read the Echocardiogram. He is not concerned about CA or ACS and as she is doing better, he recommends that she f/u with her pcp and cardiology. She and her family are in agreement with discharge. DDX: 1. CHF-Diastolic -Lasix 20mg daily -d/c alma rosa 2. Chest heaviness: This is strictly associated with her breathing issues and not exertional. I have less of a concern that this is an anginal equivalent. Initial trop negative. Reportedly had chemical stress test approximately 1 year ago without reversible ischemia per patient's daughters. - trops negative x 2. Normal stress test recently. Per cards discussion, no need for further stress at this time. 3. LBBB: No old ecg for comparison. 4. Sinus bradycardia: No AV block or pauses noted. Not on AV alexis blockers. Patient reports this is chronic issue. - Telemetry 5. CAD s/p PCI in 2005: Will continue her plavix (she has reported allergy to aspirin) and statin. 6. Dysuria: C/w previous UTI symptoms. Will treat as such. Does not have true allergy against PCN. - started keflex 500mg BID 7. Anemia: Normocytic. Somewhat chronic. Outpatient evaluation/monitoring. 8. Mild interstitial lung disease: Saw Lc Wooten in 2017. PFTs c/w restrictive pattern. She may need nocturnal O2. 9. GERD: Continue PPI 10. Dementia: Resume home aricept. Exam: NAD AAOX3 RRR CTA B S/NT/ND NO LE EDEMA MEDS: SEE MED REC F/U: SHE WILL F/U WITH HER PCP IN 1 WEEK TOTAL TIME SPENT ON D/C IS 35 MINS
--- NOTE | 2018-08-16 15:51 | ASMTCMCOM ---
CM Note CM Note Notes: Chart Review for Discharge Planning: Magda is a 83 year old female who presented to [facility] ED with shortness of breath and chest pressure. Medical history includes coronary artery with stent placement, glaucoma, arthritis, depression, back pain. CM met with patient and daughter Ligia who she lives with. Ligia will transport home and will support with follow up to PCP next week and Dimethylaniline Sulfator Operator. IM delivered and signed for receipt. Patient to discharge home independent. CM available if any additional CM needs arise. Date Signed: 08/16/2018 03:50 PM Electronically Signed By:Yolanda Gonzales
== END 2018-08-16 17:16 | disposition home or self-care (01) | DRG 292 ==
LOC: F2W 16:35 → OBSVTOIN 23:49
PROVIDERS: ADMIT Internal Medicine; ATTEND Internal Medicine
DX: I50.31 Acute diastolic (congestive) heart failure (principal); N39.0 Urinary tract infection, site not specified; J84.9 Interstitial pulmonary disease, unspecified; I25.10 Atherosclerotic heart disease of native coronary artery without angina pectoris; I44.7 Left bundle-branch block, unspecified; R00.1 Bradycardia, unspecified; K21.9 Gastro-esophageal reflux disease without esophagitis; F03.90 Unspecified dementia, unspecified severity, without behavioral disturbance, psychotic disturbance, mood disturbance, and anxiety; E03.9 Hypothyroidism, unspecified; H40.9 Unspecified glaucoma; Z95.5 Presence of coronary angioplasty implant and graft; Z88.0 Allergy status to penicillin; Z66 Do not resuscitate
CPT/HCPCS: 84484-ER; 97116-GP; 97161-GP; 97165-GO; J1650; J1940; Q9967